=== PATIENT | male | born 1995 | race Caucasian/White ===

== ENCOUNTER 2019-06-02 17:18 | Emergency (ER) | payer OTHER ==
[~2019-06-02] VITALS: Ht 177.8 cm; Wt 131.5 kg
[2019-06-02 17:26] VITALS: BP 145/83
== END 2019-06-02 18:15 | disposition home or self-care (01) ==
LOC: M.ERS 17:18
DX: S61.012A Laceration without foreign body of left thumb without damage to nail, initial encounter (principal); Z23 Encounter for immunization; X58.XXXA Exposure to other specified factors, initial encounter; Y93.89 Activity, other specified; Y92.89 Other specified places as the place of occurrence of the external cause; Y99.0 Civilian activity done for income or pay